=== PATIENT | female | born 2000 | race Caucasian/White ===

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

== ENCOUNTER 2019-02-04 22:15 | Emergency (ER) | payer MEDICAID ==
[2019-02-04 23:07] VITALS: BP 151/79
== END 2019-02-05 01:46 | disposition left against medical advice (07) ==
LOC: ER 22:15
DX: Z53.21 Procedure and treatment not carried out due to patient leaving prior to being seen by health care provider (principal)